=== PATIENT | female | born 1985 | race African-American/Black ===

== ENCOUNTER 2020-05-15 04:50 | Emergency (ER) | payer MEDICAID ==
[~2020-05-15] VITALS: Ht 162.6 cm; Wt 56.0 kg
[2020-05-15] MEDS ORDERED: CEFTRIAXONE SODIUM 1 G/VIAL IM ONE (06:30)
[2020-05-15] MEDS ORDERED: KETOROLAC 60MG/2ML VIAL IM ONE (06:30)
[2020-05-15] MEDS ORDERED: LIDOCAINE HCL 1% 20ML VIAL (Pyxis) INJ INFIL ONE (06:30)
[2020-05-15] MEDS ORDERED: CEPH500C2 MT (07:18)
[2020-05-15] MEDS ORDERED: HYDR-4346 MT (07:18)
[2020-05-15 07:27] VITALS: BP 119/82
== END 2020-05-15 07:28 | disposition home or self-care (01) ==
LOC: ER 05:07
DX: H60.12 Cellulitis of left external ear (principal); H60.93 Unspecified otitis externa, bilateral; R03.0 Elevated blood-pressure reading, without diagnosis of hypertension; R00.0 Tachycardia, unspecified
CPT/HCPCS: 81025; 96372; 99284; J0696; J1885; J3490

== ENCOUNTER 2020-05-17 13:14 | Emergency (ER) | payer MEDICAID ==
[~2020-05-17] VITALS: Ht 162.6 cm; Wt 50.0 kg
[~2020-05-17 13:14] MED LIST: CEPH500C2 MT; HYDR-4346 MT
[2020-05-17 13:44] VITALS: BP 133/79
[2020-05-17] MEDS ORDERED: KETOROLAC 30MG/ML VIAL IM ONE (13:45)
== END 2020-05-17 14:21 | disposition home or self-care (01) ==
LOC: ER 13:14
DX: H60.02 Abscess of left external ear (principal)
CPT/HCPCS: 96372; 99283; J1885

== ENCOUNTER 2020-07-09 21:07 | Emergency (ER) | payer MEDICAID ==
[~2020-07-09] VITALS: Ht 154.9 cm; Wt 54.0 kg
[2020-07-09 21:25] VITALS: BP 131/78
[2020-07-09] MEDS ORDERED: KETOROLAC 60MG/2ML VIAL IM ONE (21:45)
[2020-07-09] MEDS ORDERED: AMOXICILLIN 500 MG CAPSULE PO ONE (21:45)
[2020-07-09] MEDS ORDERED: AMOX-494 MT (21:56)
[2020-07-09] MEDS ORDERED: IBUP-2029 MT (21:58)
== END 2020-07-09 22:05 | disposition home or self-care (01) ==
LOC: ER 21:07
DX: S03.2XXA Dislocation of tooth, initial encounter (principal); X58.XXXA Exposure to other specified factors, initial encounter; Y93.89 Activity, other specified; Y92.89 Other specified places as the place of occurrence of the external cause; Y99.8 Other external cause status
CPT/HCPCS: 99283

== ENCOUNTER 2021-10-30 18:38 | Emergency (ER) | payer MEDICAID ==
[~2021-10-30] VITALS: Ht 175.3 cm; Wt 51.0 kg
[2021-10-30 18:30] VITALS: BP 141/98
[~2021-10-30 18:38] MED LIST changes: +AMOX-494 MT; +IBUP-2029 MT
== END 2021-10-30 22:16 | disposition home or self-care (01) ==
LOC: ER 18:38
DX: R00.2 Palpitations (principal); R05.9 Cough, unspecified; R42 Dizziness and giddiness; Z20.822 Contact with and (suspected) exposure to COVID-19; Z79.899 Other long term (current) drug therapy
CPT/HCPCS: 81025; 87426; 93005; 99284; C9803